=== PATIENT | female | born 1950 ===

== ENCOUNTER 2022-01-15 07:00 | Inpatient (IN) | payer OTHER ==
[~2022-01-15] VITALS: Ht 157.5 cm; Wt 59.0 kg
[2022-01-15] MEDS ORDERED: MICARDIS HCT 81 EACH PO (08:08)
[2022-01-15] MEDS ORDERED: NORVASC5 MG PO (08:08)
[2022-01-15] MEDS ORDERED: PROVOCHOLINE100 MG (08:09)
[2022-01-15] MEDS ORDERED: RELAFEN PO (08:10)
[2022-01-15] MEDS ORDERED: CAMBIA50 MG PO (08:11)
[2022-01-20] MEDS ORDERED: NABUMETONE750 MG PO (14:39)
[2022-01-22] MEDS ORDERED: NORFLEX100MG PO (12:06)
[2022-01-22] MEDS ORDERED: GABAPENTIN100 MG PO (12:06)
[2022-01-22] MEDS ORDERED: XARELTO10 MG PO (12:07)
[2022-01-22] MEDS ORDERED: OXYC1TAB9 PO (12:07)
== END 2022-01-22 13:39 | DRG 470 ==
LOC: O/R 01-20 05:50 → SURH 01-20 05:50 → SURG 01-20 07:00 → SURH 01-20 13:34
PROVIDERS: ADMIT Orthopaedic Surgery; ATTEND Orthopaedic Surgery
PROC: 0SRB0JZ Replacement of Left Hip Joint with Synthetic Substitute, Open Approach (ICD-10-PCS; principal; 2022-01-20 07:00)
DX: M16.12 Unilateral primary osteoarthritis, left hip (principal); D62 Acute posthemorrhagic anemia; M85.662 Other cyst of bone, left lower leg; I10 Essential (primary) hypertension; E78.5 Hyperlipidemia, unspecified